=== PATIENT | female | born 1930 | race Caucasian/White ===

== ENCOUNTER 2016-02-22 13:53 | Emergency (ER) | payer OTHER ==
[2016-02-22 13:59] VITALS: TEMP 98.8
[2016-02-22 14:39] LABS: % IMMATURE GRANULYOCYTES 0.2 % (0.0-1.1); ABSOLUTE IMMATURE GRANULOCYTES 0.02 10^3/uL (0.00-0.10); ADD DIFF? NO; ADD MORPH? NO; ADD SCAN? NO; ATYPICAL LYMPHOCYTE FLAG 0 (0-99); FRAGMENT RBC FLAG 0 (0-99); HEMATOCRIT 49.1 % (38.0-47.0); HEMOGLOBIN 17.2 g/dL (12.6-16.3); LEFT SHIFT FLG 0 (0-99); LIPEMIA HEMOLYSIS FLAG 90 (0-99); MEAN CELL HEMOGLOBIN 32.6 pg (27.9-34.1); MEAN PLATELET VOLUME 10.4 fL (8.7-11.7); PLATELET CLUMPS FLAG 0 (0-99); PLATELET COUNT 232 10^3/uL (150-400); RED BLOOD CELL COUNT 5.28 10^6/uL (4.18-5.33); RED CELL DISTRIBUTION WIDTH 12.8 % (11.5-15.2)
[2016-02-22 14:45] LABS: ANION GAP 12 mEq/L (8-16); CALCIUM 9.3 mg/dL (8.5-10.4); CARBON DIOXIDE 26 mEq/l (22-31); CHLORIDE 98 mEq/L (97-110); GLOMERULAR FILTRATION RATE 53; GLUCOSE 98 mg/dL (70-100); POTASSIUM 4.6 mEq/L (3.5-5.2); SODIUM 136 mEq/L (134-144)
--- NOTE | 2016-02-22 14:48 | EDPHY ---
H & P Stated Complaint: fall "a couple weeks ago" now w/ headache Time Seen by Provider: 02/22/16 14:46 HPI/ROS: CHIEF COMPLAINT: [ ] HISTORY OF PRESENT ILLNESS: [Need 4: Location, Duration, Severity, Quality, Context, Timing Modifying Factors, Associated S&S] REVIEW OF SYSTEMS: A comprehensive 10 point review of systems is otherwise negative aside from elements mentioned in the history of present illness. - Personal History Current Tetanus/Diphtheria Vaccine: Unsure Current Tetanus Diphtheria and Acellular Pertussis (TDAP): Unsure - Medical/Surgical History Hx Asthma: No Hx Chronic Respiratory Disease: No Hx Diabetes: No Hx Cardiac Disease: No Hx Renal Disease: No Hx Cirrhosis: No Hx Alcoholism: Yes Hx HIV/AIDS: No Hx Splenectomy or Spleen Trauma: No Other PMH: kidney stone - Social History Smoking Status: Former smoker - Physical Exam Exam: General Appearance: [Alert, no distress] Head: [Atraumatic] Eyes: [Pupils equal, round, reactive] ENT, Mouth: [No hemotympanum, no oral trauma] Neck: [Nontender, trachea midline] Respiratory: [No chest wall tender, subcutaneous air, lungs clear bilaterally] Cardiovascular: [Regular rate and rhythm] Abdomen: [Abdomen is soft and nontender, pelvis stable] Skin: [No lacerations, No abrasion] Back: [No midline T/L/S pain] Extremities: [Nontender, full range of motion] Neurological: [A&Ox3, normal motor function, normal sensory exam] Constitutional: Initial Vital Signs Temperature (C) 37.1 C 02/22/16 13:54 Heart Rate 84 02/22/16 13:54 Respiratory Rate 16 02/22/16 13:54 Blood Pressure 162/87 H 02/22/16 13:54 O2 Sat (%) 90 L 02/22/16 13:54 O2 Delivery Mode Room Air Allergies/Adverse Reactions: No Known Allergies Allergy (Unverified 05/10/11 14:49) Home Medications: Medication Instructions Recorded No Medications [NO HOME 1 ea MISC 05/10/11 MEDICATIONS] Medical Decision Making - Data Points Laboratory Results: Laboratory Results 02/22/16 14:15 02/22/16 14:15 02/22/16 14:15 WBC 9.37 10^3/uL (3.80-9.50) RBC 5.28 10^6/uL (4.18-5.33) Hgb 17.2 H g/dL (12.6-16.3) Hct 49.1 H % (38.0-47.0) MCV 93.0 fL (81.5-99.8) MCH 32.6 pg (27.9-34.1) MCHC 35.0 g/dL (32.4-36.7) RDW 12.8 % (11.5-15.2) Plt Count 232 10^3/uL (150-400) MPV 10.4 fL (8.7-11.7) Neut % (Auto) 74.2 % (39.3-74.2) Lymph % (Auto) 19.2 % (15.0-45.0) [place] % (Auto) 4.5 % (4.5-13.0) Eos % (Auto) 1.2 % (0.6-7.6) Baso % (Auto) 0.7 % (0.3-1.7) Nucleat RBC Rel Count 0.0 % (0.0-0.2) Absolute Neuts (auto) 6.95 H 10^3/uL (1.70-6.50) Absolute Lymphs (auto) 1.80 10^3/uL (1.00-3.00) Absolute Monos (auto) 0.42 10^3/uL (0.30-0.80) Absolute Eos (auto) 0.11 10^3/uL (0.03-0.40) Absolute Basos (auto) 0.07 10^3/uL (0.02-0.10) Absolute Nucleated RBC 0.00 10^3/uL (0-0.01) Immature Gran % 0.2 % (0.0-1.1) Immature Gran # 0.02 10^3/uL (0.00-0.10) Sodium 136 mEq/L (134-144) Potassium 4.6 mEq/L (3.5-5.2) Chloride 98 mEq/L (97-110) Carbon Dioxide 26 mEq/l (22-31) Anion Gap 12 mEq/L (8-16) BUN 20 mg/dL (7-23) Creatinine 1.0 mg/dL (0.6-1.0) Estimated GFR 53 Glucose 98 mg/dL (70-100) Calcium 9.3 mg/dL (8.5-10.4)
--- NOTE | 2016-02-22 14:58 | EDPHY ---
H & P Stated Complaint: fall "a couple weeks ago" now w/ headache Time Seen by Provider: 02/22/16 14:46 HPI/ROS: CHIEF COMPLAINT: Left temporal headache x1 day HISTORY OF PRESENT ILLNESS: The patient presents to the ED for evaluation of a mild left temporal headache x1 day. The patient reportedly fell approximately 3 weeks ago in sustained a contusion to that area. The patient denies any focal numbness or weakness. She denies fever, vomiting or diarrhea. The patient denies any dysuria. The patient is not anticoagulated. Her medical history is unremarkable aside from kidney stones. REVIEW OF SYSTEMS: A comprehensive 10 point review of systems is otherwise negative aside from elements mentioned in the history of present illness. Source: Patient Exam Limitations: No limitations - Personal History Current Tetanus/Diphtheria Vaccine: Unsure Current Tetanus Diphtheria and Acellular Pertussis (TDAP): Unsure - Medical/Surgical History Hx Asthma: No Hx Chronic Respiratory Disease: No Hx Diabetes: No Hx Cardiac Disease: No Hx Renal Disease: No Hx Cirrhosis: No Hx Alcoholism: Yes Hx HIV/AIDS: No Hx Splenectomy or Spleen Trauma: No Other PMH: kidney stone - Social History Smoking Status: Former smoker - Physical Exam Exam: General Appearance: Alert, no distress Head: Old small healed contusion above left eyebrow Eyes: Pupils equal, round, reactive ENT, Mouth: No hemotympanum, no oral trauma Neck: Nontender, trachea midline Respiratory: No chest wall tender, subcutaneous air, lungs clear bilaterally Cardiovascular: Regular rate and rhythm Abdomen: Abdomen is soft and nontender, pelvis stable Skin: No lacerations, No abrasion Back: No midline T/L/S pain Extremities: Nontender, full range of motion Neurological: A&Ox3, normal motor function, normal sensory exam Constitutional: Initial Vital Signs Temperature (C) 37.1 C 02/22/16 13:54 Heart Rate 84 02/22/16 13:54 Respiratory Rate 16 02/22/16 13:54 Blood Pressure 162/87 H 02/22/16 13:54 O2 Sat (%) 90 L 02/22/16 13:54 O2 Delivery Mode Room Air Allergies/Adverse Reactions: No Known Allergies Allergy (Unverified 05/10/11 14:49) Home Medications: Medication Instructions Recorded No Medications [NO HOME 1 ea MISC 05/10/11 MEDICATIONS] Medical Decision Making - Diagnostics Imaging: CT head without: Negative for skull fracture or intracranial hemorrhage. Study results reported to me by Dr. Aidan Davis. ED Course/Re-evaluation: The patient presents to the ED for a 1 day history of headache in a location similar to where she struck her head. The patient is noted to be neurologically intact. She is afebrile and has no meningeal symptoms. CT scan of the brain demonstrates no evidence of a intracranial hemorrhage or skull fracture. She has a headache in the area of a small contusion. At this point time she has no clinical evidence of stroke or meningitis. I do feel that she can safely be discharged home as she is not anticoagulated. She has been instructed to return to the ED for markedly worsening symptoms, numbness, weakness, fever or other acute complaints. The patient would have to examinations in the ED by myself over a 1.5 hour period. I re-evaluated the patient at 3:40 p.m. and continue to find a normal neurologic exam. Differential Diagnosis: Differential diagnosis considered includes intracranial hemorrhage, skull fracture, temporal arteritis, meningitis - Data Points Laboratory Results: Laboratory Results 02/22/16 14:15 02/22/16 14:15 02/22/16 14:15 WBC 9.37 10^3/uL (3.80-9.50) RBC 5.28 10^6/uL (4.18-5.33) Hgb 17.2 H g/dL (12.6-16.3) Hct 49.1 H % (38.0-47.0) MCV 93.0 fL (81.5-99.8) MCH 32.6 pg (27.9-34.1) MCHC 35.0 g/dL (32.4-36.7) RDW 12.8 % (11.5-15.2) Plt Count 232 10^3/uL (150-400) MPV 10.4 fL (8.7-11.7) Neut % (Auto) 74.2 % (39.3-74.2) Lymph % (Auto) 19.2 % (15.0-45.0) [place] % (Auto) 4.5 % (4.5-13.0) Eos % (Auto) 1.2 % (0.6-7.6) Baso % (Auto) 0.7 % (0.3-1.7) Nucleat RBC Rel Count 0.0 % (0.0-0.2) Absolute Neuts (auto) 6.95 H 10^3/uL (1.70-6.50) Absolute Lymphs (auto) 1.80 10^3/uL (1.00-3.00) Absolute Monos (auto) 0.42 10^3/uL (0.30-0.80) Absolute Eos (auto) 0.11 10^3/uL (0.03-0.40) Absolute Basos (auto) 0.07 10^3/uL (0.02-0.10) Absolute Nucleated RBC 0.00 10^3/uL (0-0.01) Immature Gran % 0.2 % (0.0-1.1) Immature Gran # 0.02 10^3/uL (0.00-0.10) Sodium 136 mEq/L (134-144) Potassium 4.6 mEq/L (3.5-5.2) Chloride 98 mEq/L (97-110) Carbon Dioxide 26 mEq/l (22-31) Anion Gap 12 mEq/L (8-16) BUN 20 mg/dL (7-23) Creatinine 1.0 mg/dL (0.6-1.0) Estimated GFR 53 Glucose 98 mg/dL (70-100) Calcium 9.3 mg/dL (8.5-10.4) Departure - Departure Disposition: Home, Routine, Self-Care Clinical Impression: Acute headache, Scalp contusion Condition: Good Instructions: Acute Headache (ED) Additional Instructions: 1. Tylenol as needed for pain. 2. Return to the ED vomiting, fever, worsening symptoms or other concerns.
--- NOTE | 2016-02-22 15:34 | CT ---
CT Scan of the Head (Without Contrast) Clinical Indications: 85-year-old female presenting to the ED, and noted have a laceration to the rig ht eyebrow. The patient fell 2 weeks ago, and has complained of increasing sleepiness with confusion. Technique: Axial CT images were acquired from the foramen magnum through the skull vertex, without i ntravenous contrast. Soft tissue, subdural, and bone windows were reviewed on the computer workstati on. Images were reformatted at 5.00 and 1.50 mm increments, and are reformatted in sagittal and nuvia nal planes. DFOV is 25.0 cm. Dose reduction techniques were utilized. Comparison Study: None. Findings: There are no mass lesions identified, and there is no evidence of an acute or subacute intr acranial hemorrhage, or an acute infarct. The ventricles and subarachnoid spaces are prominent, cons istent with age-related cerebral cortical atrophy. There is periventricular diminished attenuation, c onsistent with chronic microvascular ischemic gliosis. There is some atherosclerotic calcification as sociated with the cavernous carotid arteries. The bone windows reveal no sign of a fracture. The vis ualized paranasal sinuses and mastoid air cells are free of fluid. The craniocervical junction, sella turcica, pineal gland, and the orbits are not remarkable. Specifically, the pre- and postseptal spac es and each globe, as well as the retrobulbar intra- and extraconal fat appear normal. There is no ev idence of an orbital rim fracture, and the zygomatic arches are intact, as are the pterygoid plates. The temporomandibular joints are anatomically-aligned. There is some presumed cerumen in the right ex ternal auditory canal. If there is continuing clinical concern regarding the patient's symptoms, MR earl peters could be considered, if otherwise not contraindicated. Impression: Senescent features, with no acute intracranial abnormality. Results were called to Dr. Martín Polk. A test result has been communicated to a licensed care provider and documented in [employer], 3:31:12 PM , 02/22/2016, [employer] Message ID [id number].
[2016-02-22 15:49] VITALS: BP 159/93; PULSE 67; RESP 24; O2SAT 96
== END 2016-02-22 15:50 | disposition home or self-care (01) ==
DX: S09.90XA Unspecified injury of head, initial encounter (principal); S00.03XA Contusion of scalp, initial encounter; Z87.891 Personal history of nicotine dependence; W18.39XA Other fall on same level, initial encounter

== ENCOUNTER 2016-07-23 08:16 | Emergency (ER) | payer OTHER ==
--- NOTE | 2016-07-23 08:17 | EDPHY ---
HPI/HX/ROS/PE/MDM Narrative: CHIEF COMPLAINT: Back pain HPI: The patient is an 85 y/o female arriving via EMS arriving from assisted living complaining of midback pain secondary to a fall last night. Per EMS, staff said she fell out of bed last night, but was assisted back into bed. This morning, she did not want to get out of bed for breakfast due to pain. She denies neck pain, chest pain, abdominal pain, hip pain, or extremity pain. She denies any medical history or anticoagulant use. She is a poor historian. REVIEW OF SYSTEMS: Difficult to obtain as patient is a poor historian. PMH: Denies SOCIAL HISTORY: Lives at assisted living facility. PHYSICAL EXAM: General:Patient is alert, in no acute distress. ENT:Pupils constricted at 1mm, eyes otherwise are normal to inspection. ENT inspection normal. Neck: Normal inspection. No midline tenderness. Full range of motion. Respiratory:No respiratory distress. Breath sounds normal bilaterally. Cardiovascular: Regular rate and rhythm. Strong peripheral pulses. Normal cap refill. Abdomen:The abdomen is nontender to palpation. There are no peritoneal signs. Back: Normal to inspection without signs of trauma. No tenderness to palpation. Skin: Normal color. No rash. Warm and dry. Extremities: Normal appearance. Full range of motion. Neuro: Oriented x3. Normal motor function. Normal sensory function. ED Course: C-collar removed by myself. Patient has no spinal tenderness, gross neuro deficits, or visible trauma. IV established by EMS. Labs drawn including CBC, CHEM, PTPTT. Pelvis and Lumbar spine x-rays ordered. 1055: Patient is able to ambulate with assistance. X-rays are negative for acute process. Labs unremarkable. She would like to go home. We will arrange a ride home. MDM: This is an elderly patient who apparently fell out of bed last night. History is quite limited, but patient's only complaint is mild mid lower back pain. XR is negative of both L-spine and pelvis and no focal tenderness nor external signs of trauma are seen. Patient is ambulatory without difficulty and workup is negative. I do not think CT imaging is indicated at this point, but patient will need to be followed up as an outpatient. She is comfortable with the plan to be discharged home. - Data Points Imaging Results: Imaging Impressions Lumbar Spine X-Ray 07/23/16 08:24 Impression: Demineralization. No acute compression fracture. Pelvis X-Ray 07/23/16 08:24 Impression: Negative for fracture. Degenerative changes are seen. Imaging: Discussed imaging studies w/ inbound call center agent Radiologist, I viewed and interpreted images myself Laboratory Results: Laboratory Results 07/23/16 08:28 07/23/16 08:28 07/23/16 07/23/16 07/23/16 08:28 08:28 08:28 WBC 9.91 10^3/uL H 10^3/uL (3.80-9.50) RBC 5.48 10^6/uL H 10^6/uL (4.18-5.33) Hgb 17.6 g/dL H g/dL (12.6-16.3) Hct 52.3 % H % (38.0-47.0) MCV 95.4 fL fL (81.5-99.8) MCH 32.1 pg pg (27.9-34.1) MCHC 33.7 g/dL g/dL (32.4-36.7) RDW 14.2 % % (11.5-15.2) Plt Count 219 10^3/uL 10^3/uL (150-400) MPV 11.3 fL fL (8.7-11.7) Neut % (Auto) 71.6 % % (39.3-74.2) Lymph % (Auto) 19.4 % % (15.0-45.0) [place] % (Auto) 6.5 % % (4.5-13.0) Eos % (Auto) 1.5 % % (0.6-7.6) Baso % (Auto) 0.8 % % (0.3-1.7) Nucleat RBC Rel Count 0.0 % % (0.0-0.2) Absolute Neuts (auto) 7.10 10^3/uL H 10^3/uL (1.70-6.50) Absolute Lymphs (auto) 1.92 10^3/uL 10^3/uL (1.00-3.00) Absolute Monos (auto) 0.64 10^3/uL 10^3/uL (0.30-0.80) Absolute Eos (auto) 0.15 10^3/uL 10^3/uL (0.03-0.40) Absolute Basos (auto) 0.08 10^3/uL 10^3/uL (0.02-0.10) Absolute Nucleated RBC 0.00 10^3/uL 10^3/uL (0-0.01) Immature Gran % 0.2 % % (0.0-1.1) Immature Gran # 0.02 10^3/uL 10^3/uL (0.00-0.10) PT 12.1 SEC SEC (12.0-15.0) INR 0.91 (0.83-1.16) APTT 32.5 SEC SEC (23.0-38.0) Sodium 137 mEq/L mEq/L (134-144) Potassium 5.7 mEq/L H mEq/L (3.5-5.2) Chloride 100 mEq/L mEq/L (97-110) Carbon Dioxide 28 mEq/l mEq/l (22-31) Anion Gap 9 mEq/L mEq/L (8-16) BUN 23 mg/dL mg/dL (7-23) Creatinine 0.9 mg/dL mg/dL (0.6-1.0) Estimated GFR 59 Glucose 87 mg/dL mg/dL (70-100) Calcium 9.6 mg/dL mg/dL (8.5-10.4) Specimen Hemolysis 160 General Initial Vital Signs: Initial Vital Signs Temperature (C) 36.7 C 07/23/16 08:27 Heart Rate 78 07/23/16 08:27 Respiratory Rate 16 07/23/16 08:27 Blood Pressure 146/100 H 07/23/16 08:27 O2 Sat (%) 90 L 07/23/16 08:27 O2 Delivery Mode Room Air Allergies/Adverse Reactions: No Known Allergies Allergy (Unverified 05/10/11 14:49) Home Medications: Medication Instructions Recorded No Medications [NO HOME 1 ea [facility] [place] 05/10/11 MEDICATIONS] Departure - Departure Disposition: Home, Routine, Self-Care Clinical Impression: Back pain Qualifiers: Back pain location: low back pain Chronicity: acute Back pain laterality: unspecified Sciatica presence: without sciatica Qualified Code(s): M54.5 - Low back pain Fall Qualifiers: Encounter type: initial encounter Qualified Code(s): W19.XXXA - Unspecified fall, initial encounter Condition: Good Instructions: Fall Prevention for Older Adults (ED), Back Pain (ED) Additional Instructions: Follow up with your primary care provider for continued symptoms. Return for any worsening of condition. Referrals: Best Porras MD [Medical Doctor] - As per Instructions Report Scribed for: Basilio Jolly Report Scribed by: Alina Wheatley Date of Report: 07/23/16 Time of Report: 08:25 Physician Review and Approval Statement: Portions of this note were transcribed by an ED scribe. I personally performed the history, physical exam, and medical decision making; and confirm the accuracy of the information in the transcribed note.
[2016-07-23 08:30] LABS: % IMMATURE GRANULYOCYTES 0.2 % (0.0-1.1); ABSOLUTE IMMATURE GRANULOCYTES 0.02 10^3/uL (0.00-0.10); ADD DIFF? NO; ADD MORPH? NO; ADD SCAN? NO; ATYPICAL LYMPHOCYTE FLAG 0 (0-99); FRAGMENT RBC FLAG 0 (0-99); HEMATOCRIT 52.3 % (38.0-47.0); HEMOGLOBIN 17.6 g/dL (12.6-16.3); LEFT SHIFT FLG 0 (0-99); LIPEMIA HEMOLYSIS FLAG 80 (0-99); MEAN CELL HEMOGLOBIN 32.1 pg (27.9-34.1); MEAN CELL HEMOGLOBIN CONCENTR. 33.7 g/dL (32.4-36.7); MEAN CELL VOLUME 95.4 fL (81.5-99.8); MEAN PLATELET VOLUME 11.3 fL (8.7-11.7); PLATELET CLUMPS FLAG 0 (0-99); PLATELET COUNT 219 10^3/uL (150-400); RED BLOOD CELL COUNT 5.48 10^6/uL (4.18-5.33); RED CELL DISTRIBUTION WIDTH 14.2 % (11.5-15.2)
[2016-07-23 08:41] LABS: APTT 32.5 SEC (23.0-38.0); INR 0.91 (0.83-1.16); PROTIME(PATIENT) 12.1 SEC (12.0-15.0)
[2016-07-23 08:45] LABS: ANION GAP 9 mEq/L (8-16); CALCIUM 9.6 mg/dL (8.5-10.4); CARBON DIOXIDE 28 mEq/l (22-31); CHLORIDE 100 mEq/L (97-110); CREATININE 0.9 mg/dL (0.6-1.0); GLOMERULAR FILTRATION RATE 59; GLUCOSE 87 mg/dL (70-100); POTASSIUM 5.7 mEq/L (3.5-5.2); SODIUM 137 mEq/L (134-144); SPECIMEN HEMOLYSIS 160
[2016-07-23 12:31] VITALS: BP 186/98; PULSE 71; RESP 18; TEMP 97.7; O2SAT 91
== END 2016-07-23 12:34 | disposition home or self-care (01) ==
LOC: EDUNIT#
DX: S39.92XA Unspecified injury of lower back, initial encounter (principal); W06.XXXA Fall from bed, initial encounter

== ENCOUNTER 2016-10-30 17:59 | Inpatient (IN) | payer OTHER ==
--- NOTE | 2016-10-30 18:20 | CPEKG ---
Heart Rate: 71 RR Interval: 845 P-R Interval: 124 QRSD Interval: 98 QT Interval: 452 QTC Interval: 492 P [place]: 59 QRS [place]: -1 T Wave [place]: 51 EKG Severity - ABNORMAL ECG - EKG Impression: SINUS RHYTHM EKG Impression: PROBABLE LEFT ATRIAL ABNORMALITY EKG Impression: LEFT VENTRICULAR HYPERTROPHY EKG Impression: BORDERLINE PROLONGED QT INTERVAL Electronically Signed By: Eva Larson 30-Oct-2016 20:01:11
[2016-10-30 18:26] LABS: % IMMATURE GRANULYOCYTES 0.5 % (0.0-1.1); ABSOLUTE IMMATURE GRANULOCYTES 0.05 10^3/uL (0.00-0.10); ADD DIFF? NO; ADD MORPH? NO; ADD SCAN? NO; ATYPICAL LYMPHOCYTE FLAG 0 (0-99); FRAGMENT RBC FLAG 0 (0-99); HEMATOCRIT 47.5 % (38.0-47.0); HEMOGLOBIN 15.8 g/dL (12.6-16.3); LEFT SHIFT FLG 0 (0-99); LIPEMIA HEMOLYSIS FLAG 80 (0-99); MEAN CELL HEMOGLOBIN 31.3 pg (27.9-34.1); MEAN CELL HEMOGLOBIN CONCENTR. 33.3 g/dL (32.4-36.7); MEAN CELL VOLUME 94.2 fL (81.5-99.8); MEAN PLATELET VOLUME 9.5 fL (8.7-11.7); PLATELET CLUMPS FLAG 0 (0-99); PLATELET COUNT 396 10^3/uL (150-400); RED BLOOD CELL COUNT 5.04 10^6/uL (4.18-5.33); RED CELL DISTRIBUTION WIDTH 13.3 % (11.5-15.2)
[2016-10-30 18:39] LABS: ANION GAP 9 mEq/L (8-16); CALCIUM 9.4 mg/dL (8.5-10.4); CARBON DIOXIDE 26 mEq/l (22-31); CHLORIDE 96 mEq/L (97-110); CREATININE 0.9 mg/dL (0.6-1.0); GLOMERULAR FILTRATION RATE 59; GLUCOSE 85 mg/dL (70-100); POTASSIUM 4.7 mEq/L (3.5-5.2); SODIUM 131 mEq/L (134-144)
[2016-10-30] MEDS ORDERED: AZITHROMYCIN 250 MG TAB PO ONE (18:48)
[2016-10-30 18:50] LABS: INR 1.04 (0.83-1.16); PROTIME(PATIENT) 13.5 SEC (12.0-15.0)
[2016-10-30 18:51] LABS: APTT 35.2 SEC (23.0-38.0); TROPONIN I 0.015 ng/mL (0.000-0.034)
--- NOTE | 2016-10-30 19:05 | EDPHY ---
H & P Time Seen by Provider: 10/30/16 18:03 HPI/ROS: HPI Hypoxia. 86-year-old female by ambulance from the [facility]. She has a history of severe dementia. She is a DNR. Staff noticed that her pulse oximetry prior to arrival was in the mid 70s on room air. She is not oxygen dependent. She came up to the low 90s on 10 L of oxygen by nasal cannula. Unable to get any further history from the patient secondary to her dementia. Her son and his are with her at bedside. ROS: Unable to obtain secondary to patient's dementia. Past medical history: Kidney stones and dementia. Social history: As above. Physical Exam: General Appearance: Alert, she does not appear in distress. This patient appears generally well-hydrated and well-nourished. Eyes: Pupils equal and round no pallor or injection. No lid edema, erythema or injection. Respiratory: There are no retractions, decreased lung sounds at right base with faint crackles. On nasal cannula oxygen. No tachypnea. Cardiovascular: Regular rate and rhythm. No murmur appreciated. Gastrointestinal: Abdomen is soft and nontender, no masses, bowel sounds normal. No focal tenderness at McBurney's point. No Huerta sign. Neurological: Motor sensory function is grossly intact. Cranial nerves are normal. Gait is normal. Skin: Warm and dry, eczema like patchy, erythematous, blanching rash on abdomen. Musculoskeletal: Neck is supple and nontender. Extremities are symmetrical. All joints range without pain or impingement. Psychiatric: No agitation. No depression. Database: EKG: EKG time is 6:18 p.m.: EKG shows a sinus rhythm with ventricular rate of 71. Left ventricular hypertrophy noted. Borderline QT interval prolongation. She has J-point elevation in V1, V2 and V3. No reciprocal changes. No prior EKG for comparison. Interpreted by me. Imaging: Chest x-ray AP portable; the cardiac mediastinal silhouette is unremarkable. Right lower lobe/middle lobe infiltrative process. Chronic changes noted with increased interstitial markings. No pneumothorax. Interpreted by me. CT pulmonary angiogram; negative for PE. Chronic findings. Please see radiologist report for further details. Results were discussed with staff radiologist Dr. Sai Mary. Procedures: Emergency department course: IV placed. She was placed on a supervisor sunglasses. EKG obtained and reviewed by myself. She was placed on nasal cannula oxygen at 5 L. Pulse oximetry 95% on nasal cannula oxygen. 7:00 p.m., discussed results of chest x-ray and blood work with the patient's family. Discussed diagnosis of pneumonia need for IV antibiotics and admission. Patient was started on IV azithromycin and IV Rocephin after blood cultures drawn. Plan for admission discussed. 7:30 p.m., discussed case with on-call hospitalist Dr. Festus Bay. He accepts this patient for admission. Patient's remaining emergency department course under my care has been uneventful. Patient admitted in stable condition to the hospitalist service per Differential Diagnosis: The differential diagnosis on this patient includes but is not limited to pneumonia, congestive heart failure, pneumonitis, COPD, reactive airway disease. This represents a partial list of diagnoses considered. These considerations are based on history, physical exam, past history, reassessment and diagnostic testing. Smoking Status: Former smoker Constitutional: Initial Vital Signs Temperature (C) 37.2 C 10/30/16 18:03 Heart Rate 80 10/30/16 18:03 Respiratory Rate 20 10/30/16 18:03 Blood Pressure 151/122 H 10/30/16 18:03 O2 Sat (%) 85 L 10/30/16 18:03 O2 Delivery Mode Room Air O2 (L/minute) 4 Allergies/Adverse Reactions: No Known Allergies Allergy (Unverified 05/10/11 14:49) Home Medications: Medication Instructions Recorded NK [No Known Home Meds] 10/30/16 Medical Decision Making - Data Points Laboratory Results: Laboratory Results 10/30/16 18:10 10/30/16 18:10 Medications Given: Discontinued Medications Azithromycin (Zithromax) 500 mg PO EDNOW ONE PRN Reason: Protocol Stop: 10/30/16 18:49 Last Admin: 10/30/16 19:15 Dose: 500 mg Enoxaparin Sodium (Lovenox) 40 mg SC DAILY TAMMI Stop: 04/29/17 08:59 Last Admin: 10/31/16 08:54 Dose: 40 mg Furosemide (Lasix Injection) 20 mg IVP ONCE ONE Stop: 10/30/16 21:57 Last Admin: 10/30/16 22:39 Dose: 20 mg Ceftriaxone Sodium/Dextrose (Rocephin 1 Gm (Premix)) 50 mls @ 100 mls/hr IV EDNOW ONE PRN Reason: Protocol Stop: 10/30/16 19:17 Last Admin: 10/30/16 19:15 Dose: 50 mls Departure - Departure Disposition: [facility] Inpatient Acute Clinical Impression: Hypoxia, Pneumonia
[2016-10-30] MEDS ORDERED: IOPAMIDOL (ISOVUE 370) 100 ML BTL IV ONE ×2 (20:48→20:56)
[2016-10-30] MEDS ORDERED: FUROSEMIDE 20 MG/2 ML VIAL IVP ONE (21:56)
[2016-10-30 22:56] LABS: PROCALCITONIN 0.07 ng/mL (0.02-0.10)
[2016-10-30] MEDS ORDERED: ACETAMINOPHEN 500 MG TAB PO PRN (23:30)
--- NOTE | 2016-10-30 23:41 | GHP ---
[f rep st] HISTORY AND PHYSICAL DATE OF ADMISSION: 10/30/2016 CHIEF COMPLAINT: Hypoxemia. HISTORY OF PRESENT ILLNESS: This is an 86-year-old female who resides at [facility] who is brought to the emergency department after she was found to be hypoxemic by pulse oximeter earlier today. Th e patient was seen with her family present who are unable to recall the reason why they checked her p ulse oximetry. The patient denies any chest pain or shortness of breath. She has not been coughing. She denies any fevers or chills. She has not been noted to have any coughing or signs of aspiratio n with eating. PAST MEDICAL HISTORY: Hearing loss, kidney stones, dementia. PAST SURGICAL HISTORY: Denies. HOME MEDICATIONS: None. ALLERGIES: No known drug allergies. SOCIAL HISTORY: She resides at [facility]. She is a former smoker. There is no history of alcoho l or illicit drug use. FAMILY HISTORY: Reviewed and noncontributory. REVIEW OF SYSTEMS: Comprehensive 10-point review of systems was done and was negative except for as mentioned in the History of Present Illness and below. The patient reports pain in both of her hands that is attributed to arthritis. PHYSICAL EXAM: VITAL SIGNS: Blood pressure 198/94, pulse of 71, respiratory rate 18, O2 saturation 94% on 4 L. Temperature afebrile. O2 saturation 85% on room air. GENERAL: No acute distress. HEA D: Normocephalic, atraumatic. EYES: PERRLA. Sclerae anicteric. MOUTH: Dry oral mucosa. NECK: Supple. No lymphadenopathy. CARDIOVASCULAR: S1, S2. No JVD. Trace lower extremity edema. PULMONARY: Bilateral fine crackles. There are no wheezes, normal respiratory effort. No dullness t o percussion. ABDOMEN: Soft, nontender, nondistended. No guarding or rebound tenderness. Normoactive bowel sound s. EXTREMITIES: No clubbing or cyanosis. She does have significant swan-neck deformities in both of he r hands. SKIN: There is a mild non pruritic rash on her abdomen that she says is not bothering her. She is u nsure when it occurred. DIAGNOSTICS: Chest x-ray reviewed by myself, has not yet been reviewed by Radiology, shows what appe ars to be bilateral fibrosis with consolidation in the right middle lobe. There was mild cardiomegal y. Apparently a chest CT was ordered by the emergency room doctor which has not yet been read. EKG, which I visualized and personally interpreted, shows sinus rhythm, rate 71 beats per minute, wit h evidence for LVH and borderline prolonged QT interval. WBC 9.4, hemoglobin 15.8, hematocrit 47.5, platelets 396. D-dimer was elevated at 2.27. Sodium 131, potassium 4.7, chloride 96, BUN 16, creatinine 0.9, glucose 85. Troponin was 0.015. BNP was 16,000 . ASSESSMENT: This is an 86-year-old female with history of dementia, resides at [facility], who was brought to the emergency department after being found to have: 1. Acute hypoxemic respiratory failure which could possibly be chronic in nature. 2. Suspected interstitial lung disease given the presence of her bilateral fibrotic changes on chest x-ray. 3. Possible acute versus acute on chronic congestive heart failure with BNP of 16,000. 4. Uncontrolled hypertension. PLAN: 1. Admit to the medical-surgical floor. 2. Lasix 20 mg IV x1. 3. Echocardiogram. 4. Check TSH. 5. Will check a procalcitonin prior to dosing any more antibiotics. I am not convinced that her cli nical picture fits with an acute bacterial process. 6. Will start an JOHN inhibitor for blood pressure control. 7. The patient requests to be DNR status. 8. Follow up with chest CT that was done in the emergency department and is currently pending. /[id number]/MODL
[2016-10-31 04:40] LABS: % IMMATURE GRANULYOCYTES 0.3 % (0.0-1.1); ABSOLUTE IMMATURE GRANULOCYTES 0.02 10^3/uL (0.00-0.10); ADD DIFF? NO; ADD MORPH? NO; ADD SCAN? NO; ATYPICAL LYMPHOCYTE FLAG 10 (0-99); FRAGMENT RBC FLAG 0 (0-99); HEMATOCRIT 46.9 % (38.0-47.0); HEMOGLOBIN 15.4 g/dL (12.6-16.3); LEFT SHIFT FLG 0 (0-99); LIPEMIA HEMOLYSIS FLAG 80 (0-99); MEAN CELL HEMOGLOBIN 30.9 pg (27.9-34.1); MEAN CELL HEMOGLOBIN CONCENTR. 32.8 g/dL (32.4-36.7); MEAN CELL VOLUME 94.2 fL (81.5-99.8); MEAN PLATELET VOLUME 9.3 fL (8.7-11.7); PLATELET CLUMPS FLAG 10 (0-99); PLATELET COUNT 359 10^3/uL (150-400); RED BLOOD CELL COUNT 4.98 10^6/uL (4.18-5.33); RED CELL DISTRIBUTION WIDTH 13.2 % (11.5-15.2)
[2016-10-31 04:55] LABS: ANION GAP 13 mEq/L (8-16); CARBON DIOXIDE 25 mEq/l (22-31); CHLORIDE 99 mEq/L (97-110); CREATININE 0.9 mg/dL (0.6-1.0); GLOMERULAR FILTRATION RATE 59; GLUCOSE 80 mg/dL (70-100); POTASSIUM 4.3 mEq/L (3.5-5.2); SODIUM 137 mEq/L (134-144)
[2016-10-31] MEDS ORDERED: ENOXAPARIN 40 MG/0.4 ML SYR SC SCH (09:00)
--- NOTE | 2016-10-31 09:51 | ECHO ---
[id number] + + [address] : : [place] [address] : : [phone] + + Adult Echocardiographic Report + -----+ :Name: Itzel TOMASivethdalton Date: 10/31/2016 08:01 AM : : Hospital Admission Number: [id number] Location : 216: :: 1930 Gender: Female Height: 61 in : :Age: 86 yrs Race: WH Weight: 119 lb : :Reason For Study: Heart failure : : BSA: 1.5 meters2 : + -----+ MMode/2D Measurements & Calculations IVSd: 0.91 cm LVIDd: 5.4 cm EDV(Teich): Ao root diam: LVPWd: 0.99 cm 141.0 ml 3.0 cm LA dimension: 4.2 cm LVLd ap4: 7.2 cm SV(MOD-sp4): EDV(MOD-sp4): 53.0 ml 90.0 ml LVLs ap4: 6.2 cm ESV(MOD-sp4): 37.0 ml EF(MOD-sp4): 58.9 % Normal Measurement Values: + + :LVIDd (3.5-5.7cm) IVSd (0.6-1.1cm) LVPWd (0.6-1.1cm) Aortic Root (2.0-3.7cm)Left Atrium (1.5-4.0cm): :LV Vol(d) (76-115ml) LV Vol(s) (29-48ml) Ejec Fraction (50-65%)PV Bryn (0.6- 1.2m/s) TV Bryn (0.4-1.0m/s) : :MV E Bryn (0.8-1.0m/s)MV A Bryn (0.3-1.0m/s)LVOT Bryn (0.7-1.2m/s) Asc Ao Bryn ( 0.9-1.8m/s) : + + Doppler Measurements & Calculations MV E max bryn: 82.9 cm/sec Ao V2 max: 110.5 cm/sec MV A max bryn: 64.7 cm/sec Ao max P.9 mmHg MV E/A: 1.3 Left Ventricle The left ventricle is normal in size. There is normal left ventricular wall thickness. EF estimate is 55-60%. Septal motion is consistent with conduction abnormality. Right Ventricle The right ventricle is normal in size and function. Atria The left atrium is mild to moderately dilated. Right atrial size is normal. A prominent eustachian valve is noted. The interatrial septum is intact with no evidence for an atrial septal defect. Mitral Valve There is moderate to severe mitral annular calcification. There is no evidence of mitral valve prolapse. There is no mitral valve stenosis. There is mild mitral regurgitation. Tricuspid Valve Normal tricuspid valve. There is trace tricuspid regurgitation. Aortic Valve The aortic valve is trileaflet. The aortic valve opens well. There is no aortic stenosis. Trace aortic regurgitation. Pulmonic Valve The pulmonic valve is normal in structure and function. Mild pulmonic valvular regurgitation. Great Vessels The aortic root is normal size. Pericardium/Pleural There is no pericardial effusion. Conclusion A complete two-dimensional transthoracic echocardiogram was performed (2D, M-mode, Doppler and color flow Doppler). Normal LV size and systolic function. EF estimate is 55-60%. Septal motion is consistent with conduction abnormality. No ischemic appearing wall motion abnormalities. The left atrium is mild to moderately dilated. There is moderate to severe mitral annular calcification. There is mild mitral regurgitation. There is trace tricuspid regurgitation. Mild pulmonic valvular regurgitation. Final Reading Physician: Azeem Singleton signed on 10/31/2016 09:50 AM Ordering Physician: Festus Bay Performed By: Yolanda Khan RDCS
[2016-10-31] MEDS ORDERED: PNEUMOC 13-VAL CONJ-DIP CRM/PF 0.5 ML SYR IM ONE (10:42)
--- NOTE | 2016-10-31 11:12 | HOSPPROG ---
Hospitalist Progress Note Assessment/Plan: * acute hypoxic respiratory failure * Probably related to pleural effusions * bilateral pleural effusions * Uncertain cause * Echo looks pretty good without diastolic systolic dysfunction * Will drain tomorrow - can't do today d/t getting Lovenox * dementia * DNR * discussed with son Naresh Subjective: No new events Objective: Vital Signs Temp Pulse Resp BP Pulse Ox 36.4 C 67 18 161/91 H 97 10/31/16 07:50 10/31/16 07:50 10/31/16 07:50 10/31/16 07:50 10/31/16 07:50 Laboratory Results 10/31/16 03:55 10/31/16 03:55 10/30/16 10/31/16 11/01/16 05:59 05:59 05:59 Intake Total 100 Output Total 550 Balance -450 PT 13.5 SEC (12.0-15.0) 10/30/16 18:10 INR 1.04 (0.83-1.16) 10/30/16 18:10 - Physical Exam Constitutional: no apparent distress, appears nourished, not in pain Eyes: anicteric sclera, EOMI Ears, Nose, Mouth, Throat: moist mucous membranes Cardiovascular: regular rate and rhythym Respiratory: no respiratory distress, no rales or rhonchi, reduced air movement (Paste) Gastrointestinal: normoactive bowel sounds, soft, non-tender abdomen, no palpable masses Skin: warm Neurologic: No AAOx3 Psychiatric: interacting appropriately, not anxious, not encephalopathic, thought process linear ICD10 Worksheet Patient Problems: Problems Problem Status Onset Hypoxia Acute Pneumonia Acute
[2016-10-31] MEDS: amLODIPine BESYLATE 5 MG TAB PO SCH (11:21)
--- NOTE | 2016-10-31 17:08 | ASMTCMCOM ---
CM Note CM Note Notes: 86 year old female [facility], Hypoxia, CHF, Interstitial bernardino dis, HTN. She has a Hx of hearing loss, dementia. Patient is a DNR status. Uses a wheelchair at [facility]. May be able to return to [facility] vs going to SN[facility] Re[facility]. Date Signed: 10/31/2016 02:41 PM Electronically Signed By:Demetrice Rocha
[2016-11-01 05:04] LABS: INR 1.14 (0.83-1.16); PROTIME(PATIENT) 14.5 SEC (12.0-15.0)
[2016-11-01 05:05] LABS: APTT 35.6 SEC (23.0-38.0)
[2016-11-01 05:07] LABS: ANION GAP 9 mEq/L (8-16); CARBON DIOXIDE 25 mEq/l (22-31); CHLORIDE 101 mEq/L (97-110); GLOMERULAR FILTRATION RATE 52; GLUCOSE 84 mg/dL (70-100); POTASSIUM 4.3 mEq/L (3.5-5.2); SODIUM 135 mEq/L (134-144)
--- NOTE | 2016-11-01 08:31 | HOSPPROG ---
Hospitalist Progress Note Assessment/Plan: 86-year-old female noted to be hypoxic at home. She was found to have bilateral pleural effusions and hypoxemia is responsive to O2. Etiology of the pleural effusions is unclear. Patient is new to me today -acute hypoxic respiratory failure * Probably related to pleural effusions - sepsis, POA: She is hypertensive tachypneic hypoxemic on admission. -bilateral pleural effusions * Uncertain cause * Echo looks pretty good without diastolic systolic dysfunction * Will drain tomorrow - can't do today d/t getting Lovenox -dementia -DNR plan: Thoracentesis today. Discussed with her son who signed for the procedure. Subjective: No complaints no shortness of breath chest pain nausea vomiting Objective: Vital Signs Temp Pulse Resp BP Pulse Ox 37.2 C 84 13 183/95 H 96 11/01/16 04:00 11/01/16 04:00 11/01/16 04:00 11/01/16 04:00 11/01/16 04:00 Laboratory Results 10/31/16 03:55 11/01/16 04:36 10/31/16 11/01/16 11/02/16 05:59 05:59 05:59 Intake Total 100 Output Total 550 Balance -450 PT 14.5 SEC (12.0-15.0) 11/01/16 04:36 INR 1.14 (0.83-1.16) 11/01/16 04:36 Selected Entries 10/31/16 10/31/16 11/01/16 11:45 15:48 00:00 Blood Pressure 134/87 H 184/63 H 177/74 H 11/01/16 04:00 Blood Pressure 183/95 H Laboratory Tests 10/30/16 10/30/16 11/01/16 18:10 22:06 04:36 Sodium 131 L 135 NT-Pro-B Natriuret Pep 51674 H Procalcitonin 0.07 TSH 1.650 BP elevated; Procalcitonin normal, BNP elevated - Time Spent With Patient Time Spent with Patient: greater than 35 minutes Time Spent with Patient: Greater than 35 minutes spent on this patients care, greater than 50% of time spent counseling, educating, and coordinating care regarding the above mentioned plan. - Pending Discharge Pending Discharge Within 24 Hours: No Pending Discharge Within 48 Hours: Yes Pending Discharge Date: 11/03/16 Pending Discharge Time: 11:00 - Physical Exam Constitutional: no apparent distress, chronically ill appearing Eyes: PERRL, anicteric sclera Ears, Nose, Mouth, Throat: moist mucous membranes, hearing normal Cardiovascular: regular rate and rhythym, tachycardia Respiratory: no respiratory distress, reduced air movement, inspiratory crackles , dullness to percussion Gastrointestinal: normoactive bowel sounds, soft, non-tender abdomen Genitourinary: no bladder fullness Skin: warm Musculoskeletal: generalized weakness Neurologic: CN II-XII Intact, other ( oriented x1 at best) Psychiatric: interacting appropriately ICD10 Worksheet Patient Problems: Problems Problem Status Onset Hypoxia Acute Pneumonia Acute
[2016-11-01 09:58] LABS: LACTATE DEHYDROGENASE 717 IU/L (313-618)
[2016-11-01] MEDS: amLODIPine BESYLATE 5 MG TAB PO SCH (10:54)
[2016-11-01] MEDS ORDERED: LIDOCAINE 1% 300 MG/30 ML SDV ONE (15:17)
[2016-11-01 18:28] LABS: LD, PLEURAL FLUID 252 IU/L
[2016-11-02] MEDS: amLODIPine BESYLATE 5 MG TAB PO SCH (08:17)
--- NOTE | 2016-11-02 11:15 | HOSPPROG ---
Hospitalist Progress Note Assessment/Plan: 86-year-old female noted to be hypoxic at home. She was found to have bilateral pleural effusions and hypoxemia is responsive to O2. Etiology of the pleural effusions is unclear. -acute hypoxic respiratory failure * Probably related to pleural effusions - sepsis, POA: She is hypertensive tachypneic hypoxemic on admission. -bilateral pleural effusions * Uncertain cause * Echo looks pretty good without diastolic systolic dysfunction * Will drain tomorrow - can't do today d/t getting Lovenox -dementia -DNR plan: Thoracentesis today. Discussed with her son who signed for the procedure. Objective: Vital Signs Temp Pulse Resp BP Pulse Ox 37.0 C 80 18 110/70 93 11/02/16 08:00 11/02/16 08:00 11/02/16 08:00 11/02/16 08:17 11/02/16 08:00 Microbiology 11/01/16 16:35 Gram Stain - Final Thoracic Fluid - Aspirate Laboratory Results 10/31/16 03:55 11/01/16 04:36 11/01/16 11/02/16 11/03/16 05:59 05:59 05:59 Intake Total 610 120 Output Total 500 Balance 110 120 PT 14.5 SEC (12.0-15.0) 11/01/16 04:36 INR 1.14 (0.83-1.16) 11/01/16 04:36 - Time Spent With Patient Time Spent with Patient: greater than 35 minutes Time Spent with Patient: Greater than 35 minutes spent on this patients care, greater than 50% of time spent counseling, educating, and coordinating care regarding the above mentioned plan. - Pending Discharge Pending Discharge Within 24 Hours: No Pending Discharge Within 48 Hours: Yes Pending Discharge Date: 11/11/16 Pending Discharge Time: 11:00 - Physical Exam Constitutional: no apparent distress, chronically ill appearing Eyes: PERRL, anicteric sclera Ears, Nose, Mouth, Throat: moist mucous membranes, hearing normal Cardiovascular: regular rate and rhythym, no murmur, rub, or gallop Respiratory: reduced air movement, inspiratory crackles, dullness to percussion Gastrointestinal: normoactive bowel sounds, soft, non-tender abdomen, no palpable masses Genitourinary: no bladder fullness Skin: warm, normal color Musculoskeletal: generalized weakness Neurologic: CN II-XII Intact Psychiatric: interacting appropriately ICD10 Worksheet Patient Problems: Problems Problem Status Onset Hypoxia Acute Pneumonia Acute
[2016-11-02 11:24] VITALS: TEMP 98.4
[2016-11-02 13:46] LABS: ALANINE AMINOTRANSFERASE 21 IU/L (9-52); ALBUMIN 3.7 g/dL (3.5-5.0); ALKALINE PHOSPHATASE 83 IU/L (38-126); ANION GAP 11 mEq/L (8-16); ASPARTATE AMINOTRANSFERASE 21 IU/L (14-46); BILIRUBIN,TOTAL 0.6 mg/dL (0.1-1.4); CALCIUM 9.4 mg/dL (8.5-10.4); CARBON DIOXIDE 29 mEq/l (22-31); CHLORIDE 97 mEq/L (97-110); CREATININE 0.8 mg/dL (0.6-1.0); GLOMERULAR FILTRATION RATE > 60; GLUCOSE 93 mg/dL (70-100); POTASSIUM 4.6 mEq/L (3.5-5.2); SODIUM 137 mEq/L (134-144); TOTAL PROTEIN 6.6 g/dL (6.3-8.2)
[2016-11-02 15:20] VITALS: BP 126/71; PULSE 69; RESP 22; O2SAT 95
--- NOTE | 2016-11-02 16:31 | PDHOMEO2F ---
Home Oxygen Face to Face Home Orders: I certify that a physician or a nurse practitioner or physician's dental chairside assistant has had a [id number] encounter with this patient on the date of this order due to the diagnosis listed, which relates to the primary reason the patient requires home oxygen. Alternative treatments have been tried, or considered, and deemed ineffective. It is anticipated that supplemental oxygen will result in improvement with treatment. Home oxygen qualifying diagnosis: Pleural effusions Home oxygen secondary diagnosis: COPD SpO2 on room air (%): 85 Frequency of home oxygen needed: continuous Home oxygen liters per minute: 2 Home oxygen delivery device: nasal cannula Concentrator: Yes E-tanks for mobility and back up: Yes If ordering portable O2, is the patient mobile in the home?: Yes I certify that, based on these findings, the home oxygen is medically necessary for this patient for the following length of time. Length of time home oxygen needed: 3 months
--- NOTE | 2016-11-02 16:43 | PDIAF ---
- Diagnosis Code Status: Do Not Resuscitate - Medication Management Discharge Medications: Medications to Continue on Transfer Acetaminophen [Tylenol ES 500 mg (*)] 1,000 mg PO Q8H PRN tab 11/02/16 [Last Taken Unknown] Furosemide [Lasix 40 MG (*)] 20 mg PO DAILY #30 tab 11/02/16 [Last Taken Unknown ] Potassium Cl [Klor-Con] 10 meq PO DAILY #30 tab 11/02/16 [Last Taken Unknown] amLODIPine BESYLATE [Norvasc 5 mg (*)] 5 mg PO DAILY tab 11/02/16 [Last Taken Unknown] Discharge Medications: Refer to the Discharge Home Medication list for PRN reason. - Orders Services needed: Physical Therapy, Occupational Therapy Home Care Face to Face: yes Oxygen: 2 liters [employer] continuous Diet Recommendation: sodium restricted Diet Texture: Regular Texture Diet Weigh Patient: weekly Additional: Please have a Hospice evaluation for evaluation and care at [facility] - Labs/Radiology CBC Date: 11/09/16 CMP Date: 11/09/16 - Follow Up Care Current Providers and Referrals: DR ZACH GALLOWAY [Other] - follow up in 2 weeks
--- NOTE | 2016-11-02 17:02 | PDIAF ---
- Diagnosis Code Status: Do Not Resuscitate - Medication Management Discharge Medications: Medications to Continue on Transfer Acetaminophen [Tylenol ES 500 mg (*)] 1,000 mg PO Q8H PRN tab 11/02/16 [Last Taken Unknown] Furosemide [Lasix 40 MG (*)] 20 mg PO DAILY #30 tab 11/02/16 [Last Taken Unknown ] Potassium Cl [Klor-Con] 10 meq PO DAILY #30 tab 11/02/16 [Last Taken Unknown] amLODIPine BESYLATE [Norvasc 5 mg (*)] 5 mg PO DAILY tab 11/02/16 [Last Taken Unknown] Discharge Medications: Refer to the Discharge Home Medication list for PRN reason. - Orders Services needed: Home Care, Registered Nurse, Certified Weight Checker, Physical Therapy, Occupational Therapy Home Care Face to Face: I certify that this patient was under my care and that I had the required [id number] encounter meeting the encounter requirements on the discharge day. My findings support the fact that the patient is homebound as defined in CMS Chapter 7 Medicare Benefits Manual 30.1.1, The condition of the patient is such that there exists a normal inability to leave home and consequently, leaving home would require a considerable and taxing effort. Oxygen: 2 liters [employer]SEM[employer]ER continuous Diet Recommendation: sodium restricted Diet Texture: Regular Texture Diet Weigh Patient: weekly Additional: Please have a Hospice evaluation for evaluation and care at [facility] - Labs/Radiology CBC Date: 11/09/16 CMP Date: 11/09/16 - Follow Up Care Current Providers and Referrals: DR ZACH GALLOWAY [Other] - follow up in 2 weeks
--- NOTE | 2016-11-03 00:10 | GDS ---
[f rep st] DISCHARGE SUMMARY KNOWN ACUTE DIAGNOSES ON THIS ADMISSION: 1. Bilateral pleural effusions. 2. Congestive heart failure secondary to diastolic dysfunction with decompensation. 3. Hypertension, uncontrolled at admission, now controlled. 4. Interstitial lung disease with underlying chronic obstructive pulmonary disease. 5. Hypoxia requiring home O2. 6. Do not resuscitate. CHRONIC DIAGNOSES: 1. Hearing loss. 2. Prior kidney stones. 3. Dementia. CONSULTATIONS: None. PROCEDURES: Echocardiogram showing an EF of 55% to 60%, moderately enlarged left atrium, moderate to severe mitral annular calcification, and mild mitral regurgitation and mild pulmonic regurgitation. HOSPITAL COURSE: 86-year-old, admitted, and found to be hypoxic. She was noted to have bilateral pleural effusions, which received thoracentesis under ultrasound on the right chest. Approximately 250 cc of turbid yellow fluid was removed. Analysis would indicate it was a transudative fluid. Cultures are pending. Following the thoracentesis, her hypoxemia improved, but did not resolve. It is felt that she probably has bilateral pleural effusions due to decompensated diastolic CHF and uncontrolled hypertension. Her blood pressure was brought under good control during the hospitalization, and she will be discharged on diuretics for followup. I have spoken with the son, who indicates that she is DNR, and he preferred that she return to [facility]. He has requested a hospice evaluation there at [facility]. Oxygen has also been ordered. DISCHARGE MEDICATIONS: Oxygen at 2 L/minute has been ordered, Tylenol 500 mg to 1000 mg q.8 hours p.r.n., Norvasc 5 mg daily, Lasix 20 mg daily, Klor-Con 10 mEq daily. PLAN: The lady will return to [facility]. A hospice evaluation will be ordered there at [facility]. O2 has also been ordered to 2 L/minute for a duration of 3 months until she has followed up with her physician at [facility], Dr. Cowart. Follow up will be with Dr. Cowart at [facility]. LABORATORIES: Of note at the time of discharge, her CMP was normal. TSH normal at 1.6. Procalcitonin normal at 0.07. Albumin 3.7. Total protein 6.6. Her BNP on admission was 16,000. WBC 6000, hemoglobin 15.4. MATTERS TO BE ADDRESSED: At the first followup are recheck of her oxygen saturation and an evaluation as to whether she has resolved the pleural effusions and check of her electrolytes regarding the fact that she is on potassium and on Lasix. Time: 45 minutes > 50% to developmental training counselor and coordinate care /[id number]/MELANIE ZAVALA
--- NOTE | 2016-11-03 15:31 | ASDISCHSUM ---
Discharge Information Plan Status:Assisted Living Medically Cleared to Leave: Discharge Date:11/02/2016 06:34 PM CM D/C Disposition:Home, Routine, Self-Care ADT D/C Disposition:Home, Routine, Self-Care Projected Discharge Date:11/02/2016 06:34 PM Transportation at D/C: Discharge Delay Reason: Follow-Up Date:11/02/2016 06:34 PM Discharge Slot: Final Diagnosis: Placement Information Patient Contact Information Contact Name:LEAH Relationship:Erick Address: Work Phone: City: [facility] Phone: State/Fly[place] Code: Email: Financial Information Financial Class:Medicare Advantage Plans Primary Plan Desc:[employer] MEDICARE ADV IP Primary Plan Number:[id number] Secondary Plan Desc: Secondary Plan Number: Assessment Information [facility] CM Progress Note CM Alan CM Note Notes: 86 year old female admitted from [facility] for PNA, Hypoxia, CHF, Interstitial bernardino dis, HTN. She has a Hx of hearing loss, dementia. Patient is a DNR status. Uses a wheelchair at [facility]. May be able to return to [facility] vs going to SN[facility] Re[facility]. Date Signed: 10/31/2016 02:41 PM Electronically Signed By:Demetrice Rocha LCSW [facility] CM Progress Note CM Note CM Note Notes: Pt will dc back home to [facility] this [place]. Have spoken with [facility] who has assessed pt and they are able to accept back today. D/W Dr Wheeler. [facility] ordered through [facility], spoke w/Sera at [facility]. Orders/info faxed to [facility] and [facility]. Confirmed w/Amanda at [facility] that they are expecting pt back this [place]. Met w/pt and two sons who are in agreement w/dc poc. They will transport their mom together back to [facility]. Date Signed: 11/02/2016 06:07 PM Electronically Signed By:Cheri Craig RN Intervention Information Intervention Type:*IM-Signed Date of Service:11/02/2016 10:24 AM Patient Type:Inpatient Staff Member:Jael Polk Hours: Discipline: Severity: Comment:Patient is unable to sign for herself. I spoke with her son, Naresh Brady, over the phone and he gave verbal consent to si gn the IM form.
--- NOTE | 2016-11-05 12:38 | PQFORM ---
PHYSICIAN QUERY FORM Needs Your Response This query form is being sent to you to assure this patient record is coded properly. Please respond to the question below: HAND FINISHER QUESTION: Dr Wheeler Sepsis was mentioned in progress notes but not on Discharge Summary - Did this patient have Sepsis? ___ Yes _XX__ No ___ Unable to determine _XX__ Other __Patient was hypoxic and hypertensive on admission. She does not meet the criteria of sepsis, POA or within 48 hours of admission, or durring the hospitalization Thank You Jeanie BARBOSA Mobile Ui Developer INSTRUCTIONS FOR RESPONSE: Answer question by clicking on the "Edit Document" button. Move cursor to area below the stars. When complete, hit "Save." Click on the "Sign" button, then click "Sign" again. Type in your PIN and hit "Enter." MTDD
== END 2016-11-02 18:34 | disposition home or self-care (01) | DRG 291 ==
LOC: EDUNIT# → F2W 21:40
PROVIDERS: ADMIT Family Medicine; ATTEND Family Medicine
PROC: 0W993ZX Drainage of Right Pleural Cavity, Percutaneous Approach, Diagnostic (ICD-10-PCS; principal; 2016-10-31)
DX: I11.0 Hypertensive heart disease with heart failure (principal); I50.33 Acute on chronic diastolic (congestive) heart failure; J90 Pleural effusion, not elsewhere classified; J96.01 Acute respiratory failure with hypoxia; F03.90 Unspecified dementia, unspecified severity, without behavioral disturbance, psychotic disturbance, mood disturbance, and anxiety; Z87.891 Personal history of nicotine dependence; J44.9 Chronic obstructive pulmonary disease, unspecified; Z99.81 Dependence on supplemental oxygen; J84.9 Interstitial pulmonary disease, unspecified; Z87.442 Personal history of urinary calculi
CPT/HCPCS: 96365; 97162-GP; 97166-GO; 97530-GO; G0009; G8987-GO-CL; G8988-GO-CK; J0696; J1650; J1940; Q9967